=== PATIENT | male | born 1950 | race Caucasian/White ===

== ENCOUNTER 2016-02-26 08:45 | Day surgery (SDC) | payer MEDICARE, BC ==
[2016-02-26] VITALS (8 sets, daily range): BP systolic 118–145; BP diastolic 62–75; PULSE 61–81; TEMP 97.9–98
[~2016-02-26] VITALS: Ht 175.4 cm; Wt 85.5 kg
[~2016-02-26 08:45] MED LIST: ASPIRIN E.C. 8181 MG PO; NORVASC 5MG5 MG/TAB PO; PRILOSEC 20MG20 MG PO; ZESTRIL 10MG10 MG PO; ZIAC 10/6.25M1 UDTAB PO; ZOCOR 20MG20 MG PO; ZYRTEC 10MG10 MG PO
[2016-02-26 09:48] LABS: HEMATOCRIT 42.4 % (42.0-52.0); HEMOGLOBIN 14.1 g/dl (13.5-18.0); MEAN CELL VOLUME 92 fl (80.0-100.0); MEAN CORPUSCULAR HEMOGLOBIN 31 pg (27.0-31.0); MEAN CORPUSCULAR HGB CONC 33 g/dl (33.0-37.0); MEAN PLATELET VOLUME 11.2 fl (7.4-10.4); PLATELET COUNT 208 K/mm3 (130-400); RED BLOOD COUNT 4.59 M/mm3 (4.20-5.60); REDCELL DISTRIBUTION WIDTH-CV 12.9 % (11.5-14.5); WHITE BLOOD COUNT 11.6 K/mm3 (4.8-10.8)
[2016-02-26 09:56] LABS: INR 1.3 (0.8-3.0)
[2016-02-26 09:58] LABS: CALCIUM 9.5 mg/dL (8.4-10.2); CREATININE, serum 0.98 mg/dL (0.66-1.25); POTASSIUM 4.4 mmol/L (3.4-5.0)
[2016-02-26] MEDS ORDERED: CEPHALEXIN500 M1 PO (12:30)
== END 2016-02-26 14:25 | disposition home or self-care (01) ==
LOC: COL.RAD 08:45 → EUO 08:45 → COL.RAD 09:15 → EUO 14:25
PROVIDERS: Internal Medicine Cardiovascular Disease
DX: I48.0 Paroxysmal atrial fibrillation (principal); I10 Essential (primary) hypertension; Z79.899 Other long term (current) drug therapy; Q23.1 Congenital insufficiency of aortic valve
CPT/HCPCS: C1785; J0690; J2250; J3010; J7040

== ENCOUNTER 2018-06-28 10:26 | Day surgery (SDC) | payer MEDICARE, BC ==
[~2018-06-28] VITALS: Ht 175.3 cm; Wt 79.5 kg
[2018-06-28] VITALS (9 sets, daily range): BP systolic 104–142; BP diastolic 44–66; PULSE 59–80; TEMP 97.6–98.4
[~2018-06-28 10:26] MED LIST changes: +COZAAR 50MG50 MG/TAB PO; +FLEXERIL 1010 MG/TAB PO; -NORVASC 5MG5 MG/TAB PO
[2018-06-28] MEDS ORDERED: ADVIL200 MG PO (11:14)
[2018-06-28] MEDS ORDERED: CIALIS10 MG PO (11:14)
--- NOTE | 2018-06-28 14:50 | NUR ---
TO RM6 PER CART FROM PACU. ALERT ORIENTED X3, ANSWERED QUESTIONS COHERENTLY C/O "SLIGHT NAUSEA" COLOR PALE. 02 SAT 96% ON 2L [employer] DRY INTACT. DENIES PAIN AT THIS TIME.
[2018-06-28] MEDS ORDERED: TYLENOL 500MG500 MG PO (15:15)
[2018-06-28] MEDS ORDERED: ROXICODONE 55 MG/TAB PO (15:15)
--- NOTE | 2018-06-28 15:20 | NUR ---
PATIENT SLEEPING, BUT AWAKENS EASILY
--- NOTE | 2018-06-28 15:55 | NUR ---
RECEIVED CRACKERS, WATER AND TAKING SIPS
--- NOTE | 2018-06-28 16:05 | NUR ---
RECEIVED OXYCODONE 5MG AND RECEIVED JELLO AND TOOK A FEW BITES
--- NOTE | 2018-06-28 16:10 | NUR ---
AFTER TAKING A FEW BITES OF JELLO, PATIENT NAUSEATED AND HAVING EMESIS. APPROX, 100CC AFTER EMESIS PATIENT STATD HE FLET MUCH BETTER.
--- NOTE | 2018-06-28 16:30 | NUR ---
PAIENT RESTING QUIETLY.
--- NOTE | 2018-06-28 17:00 | NUR ---
PATIENT RESTING QUIETLY
--- NOTE | 2018-06-28 17:05 | NUR ---
PATIENT RESTING QUIETLY. DENIES WANTING ANYTHING TO EAT OR DRINK.
--- NOTE | 2018-06-28 17:30 | NUR ---
UP AMBULATED TO BATHROOM AND VOIDED.
--- NOTE | 2018-06-28 17:35 | NUR ---
DISCHARGED PER WC BY NURSING STAFF TO PRIVATE CAR IN CARE OF
--- NOTE | 2018-06-28 17:45 | NUR ---
RECEIVED DISCHARGE INSTRUCTIONS AND VERBALIZED UNDERSTANDING. DISCONTINUED IV AND INT PATIENT GETTING DRESSED. WENT TO GET THE CAR.
== END 2018-06-28 18:09 | disposition home or self-care (01) ==
LOC: SDCO 10:26
DX: K40.91 Unilateral inguinal hernia, without obstruction or gangrene, recurrent (principal); I10 Essential (primary) hypertension; E78.5 Hyperlipidemia, unspecified; I48.91 Unspecified atrial fibrillation; K21.9 Gastro-esophageal reflux disease without esophagitis; M19.90 Unspecified osteoarthritis, unspecified site; Z79.82 Long term (current) use of aspirin; Z95.0 Presence of cardiac pacemaker; Z80.42 Family history of malignant neoplasm of prostate; Z82.3 Family history of stroke; Z82.49 Family history of ischemic heart disease and other diseases of the circulatory system
CPT/HCPCS: C1781; J0360; J0690; J1100; J1885; J2405; J2550; J2704; J2710; J3010; J7120